=== PATIENT | male | born 2000 | race Asian ===

== ENCOUNTER 2020-04-06 09:35 | Emergency (ER) | payer OTHER ==
[~2020-04-06] VITALS: Ht 175.3 cm; Wt 70.9 kg
--- NOTE | 2020-04-06 11:14 | REPVR ---
PROCEDURE INFORMATION: Exam: XR Thoracic Spine, 3 Views Exam date and time: 04/06/2020 11:05 AM Age: 19 years old Clinical indication: Injury or trauma; Fall; Blunt trauma (contusions or hematomas) TECHNIQUE: Imaging protocol: XR of the thoracic spine, 3 views. COMPARISON: No relevant prior studies available. FINDINGS: Vertebrae: There may be a slight superior endplate compression deformity of T11. If real this would be 10%. Soft tissues: Unremarkable. Other findings: Bones are well aligned. IMPRESSION: Questionable subtle compression deformity superior endplate T11. Electronically signed by: Dennis Melendrez On 04/06/2020 11:14:07 AM
--- NOTE | 2020-04-06 11:15 | REPVR ---
PROCEDURE INFORMATION: Exam: XR Lumbosacral Spine, 4 or 5 Views Exam date and time: 04/06/2020 11:05 AM Age: 19 years old Clinical indication: Injury or trauma; Fall; Blunt trauma (contusions or hematomas) TECHNIQUE: Imaging protocol: XR of the lumbosacral spine, 4 or 5 views. COMPARISON: No relevant prior studies available. FINDINGS: Vertebrae: Normal. No acute fracture. Normal alignment. Soft tissues: Unremarkable. IMPRESSION: No acute findings. Electronically signed by: Dennis Melendrez On 04/06/2020 11:15:30 AM
--- NOTE | 2020-04-06 11:48 | REPVR ---
PROCEDURE INFORMATION: Exam: CT Thoracic Spine Without Contrast Exam date and time: 04/06/2020 11:23 AM Age: 19 years old Clinical indication: Injury or trauma and abnormal findings; Fall; Abnormal radiologic findings of thoracic; Blunt trauma (contusions or hematomas); Additional info: ? T11 FX on xray TECHNIQUE: Imaging protocol: Computed tomography images of the thoracic spine without contrast. Radiation optimization: All CT scans at this facility use at least one of these dose optimization techniques: automated exposure control; mA and/or kV adjustment per patient size (includes targeted exams where dose is matched to clinical indication); or iterative reconstruction. COMPARISON: CR Spine, Thoracic 3 VIEWS 04/06/2020 10:39 AM FINDINGS: Vertebrae: There is a superior endplate deformity noted approximately 10% involving mid to anterior portion of the T11 vertebral body. This correspond to plain films. There is a subtle deformity possibly an acute fracture line seen involving the superior endplate. Normal alignment. Discs/Spinal canal/Neural foramina: No significant disc protrusion. No severe spinal canal stenosis. No significant neural foraminal narrowing. Soft tissues: Unremarkable. IMPRESSION: Fracture superior endplate of T11. Possibly acute. Electronically signed by: Dennis Melendrez On 04/06/2020 11:48:53 AM
[2020-04-06 12:15] VITALS: BP 103/58
[2020-04-06] MEDS ORDERED: PERCOCET 5MG/325MG TAB PO ONE (12:15)
[2020-04-06] MEDS ORDERED: PERC5TAB12 PO (12:15)
== END 2020-04-06 12:38 | disposition home or self-care (01) ==
LOC: M ED 09:35
DX: S22.088A Other fracture of T11-T12 vertebra, initial encounter for closed fracture (principal); W19.XXXA Unspecified fall, initial encounter; Y92.89 Other specified places as the place of occurrence of the external cause; Y93.9 Activity, unspecified; Y99.1 Military activity